=== PATIENT | female | born 1955 | race Caucasian/White ===

== ENCOUNTER 2018-09-07 00:02 | Outpatient (CLI) | payer BC, SELFPAY ==
--- NOTE | 2018-09-07 08:15 | ETT_ITS ---
*[facility]* *[facility]* [address] [place] [address] Stress Electrocardiography Leander protocol Date of study: 09/07/2018 *PATIENT PRESENTATION* Height: 167.6cm (66in) Blood Pressure: Weight: 59.1kg (130lb) BSA: 1.66m^2 Referring physician: Enedelia Dyer Ordering physician: Enedelia Dyer Impressions: Normal study after maximal exercise. Summary: 1. Stress ECG conclusions: The stress ECG is negative. Avina treadmill score: 8. This score predicts a low risk of cardiac events. 2. Stress: The target heart rate was achieved. The heart rate response to stress is exaggerated. There is a normal resting blood pressure with an appropriate response to stress. The patient experienced no chest pain during stress. Exercise capacity is above normal for age. 3. Treadmill exercise testing was performed using the Leander protocol. The patient exercised for 8 min, to protocol stage 3, to a maximal work rate of 10.2mets. Exercise was terminated due to fatigue. Indication: R07.89, Appropriate Use Criteria: A (Appropriate). History: REASON FOR VISIT: CHEST PAIN. PT REPORTS WHILE SITTING AT HER DESK AT WORK SHE HAD A STEADY ACHE IN HER CENTER OF HER CHEST/EPIGASTRIC REGION. SHE DESCRIBES LIKE AN UNCOMFORTABLE BALL OVER HER EPIGASTRIC REGION. THIS LASTED ABOUT 10-15 MINUTES AND SUBSIDED WITHOUT INTERVENTION. THERE WAS NO ASSOCIATED SOB OR NAUSEA. PT'S BROTHER AT AGE 53 OF AN ENLARGED HEART AND HER FATHER OF A MYOCARDIAL INFARCTION IN HIS 70'S. PMH: Asthma. Risk factors: FORMER SMOKER ONE PACK PER DAY FOR 30 YEARS. QUIT IN 2004. Family history of coronary artery disease. ALLERGIES: CODEINE. OXYCODONE. MEDICATIONS: SEROQUEL 50 MG Q HS. MVI DAILY. MESALAMINE 1,000 MG AR HS PRN. MESALAMINE 1.2 GM TAB DAILY. BUPROPION HCL 150 MG DAILY. BUPROPION HCL 300 MG DAILY. Protocol: Leander protocol. Baseline ECG: SINUS RHYTHM. HR 85 BPM. Normal ECG. Stress protocol: + +---+ + !Stage !HR !BP (mmHg) ! + +---+ + !Baseline supine !85 !120/70 (87) ! + +---+ + !Baseline standing !95 !120/68 (85) ! + +---+ + !Stage I; 1.7mph, 10degrees; 3 min !130!126/80 (95) ! + +---+ + !Stage II; 2.5mph, 12degrees; 3 min !150!138/82 (101)! + +---+ + !Stage III; 3.4mph, 14degrees; 3 min!164! ! + +---+ + !Peak stress !167! ! + +---+ + !Recovery; 1 min !150!150/60 (90) ! + +---+ + !Recovery; 3 min !121!150/58 (89) ! + +---+ + !Recovery; 6 min !110!120/60 (80) ! + +---+ + !Recovery; 9 min !108!118/58 (78) ! + +---+ + * Stress results: Maximal heart rate during stress was 167bpm (106% of maximal predicted heart rate). The maximal predicted heart rate was 157bpm. The target heart rate was achieved. The heart rate response to stress is exaggerated. There is a normal resting blood pressure with an appropriate response to stress. The rate-pressure product for the peak heart rate and blood pressure was 73857dq Hg/min. The patient experienced no chest pain during stress. Exercise capacity is above normal for age. Stress ECG: TREADMILL PORTION OF STRESS TEST ENDED IN 8 MINUTES & 1 SECOND DUE TO FATIGUE. NORMAL HEART RATE AND BLOOD PRESSURE RESPONSE TO EXERCISE. MAX HR = 167 % OF TARGET= 106 NO ECTOPY APPROXIMATE METS ACHIEVED = 10.16 NO ANGINA NO SIGNIFICANT ST SEGMENT CHANGES ABOVE AVERAGE FUNCTIONAL CAPACITY FOR EXERCISE The stress ECG is negative. Avina treadmill score: 8. This score predicts a low risk of cardiac events. Study data: Stuart Woodward MD supervised and was readily available during the procedure. This study was interpreted by [facility]. Study status: Routine. Consent: The risks, benefits, and alternatives to the procedure were explained to the patient and informed consent was obtained. Procedure: Initial setup. A baseline ECG was recorded. Surface ECG leads and manual cuff blood pressure measurements were monitored. Heart sounds: Normal. Lung sounds: Normal. Treadmill exercise testing was performed using the Leander protocol. The patient exercised for 8 min, to protocol stage 3, to a maximal work rate of 10.2mets. Exercise was terminated due to fatigue. Study completion: The patient tolerated the procedure well and was discharged from the lab. Discharge: The patient left the laboratory in stable condition. Birthdate: Patient birthdate: 1955. Sex: Gender: female. Study date: Study date: 09/07/2018. Study time: 00:01 AM. Signature Documentation: The Stress ECG portion of this study was interpreted by Stuart Woodward MD. Electronically signed by Stuart Woodward 09/07/2018 09:49
== END 2018-09-07 00:22 ==
PROVIDERS: PCP Nurse Practitioner Family; Visit Provider Nurse Practitioner Family
DX: R07.89 Other chest pain (principal); Z87.891 Personal history of nicotine dependence; Z82.49 Family history of ischemic heart disease and other diseases of the circulatory system
CPT/HCPCS: 93017

== ENCOUNTER 2018-09-20 07:43 | Outpatient (CLI) | payer BC, SELFPAY ==
[2018-09-20 07:57] LABS: Abs Immature Grans 0.01 k/cumm (0.0-0.09); Absolute Basophil Count 0.01 k/cumm (0.0-0.2); Absolute Eosinophil Count 0.09 k/cumm (0.0-0.7); Absolute Monocyte Count 0.56 k/cumm (0.11-0.7); Absolute Neutrophil Count 7.82 k/cumm (1.2-6.7); Basophils % 0.1; Eosinophils % 0.9; HCT 41.9 % (36.0-46.0); Immature Grans % 0.1; Lymphocytes % 12.4; Mean Corp. HGB Concentration 33.4 g/dL (32.0-36.0); Mean Corpuscular Hemoglobin 31.6 pg (27.0-33.0); Mean Corpuscular Volume 94.6 fL (80-95); Monocytes % 5.8; Neutrophils % 80.7; Platelet Count 256 x1000/uL (130-400); RBC 4.43 m/cumm (4.00-5.20); RBC Distribution Width 13.2 % (11.7-14.6); White Blood Cell Count 9.69 k/cumm (4.4-10.8)
[2018-09-20 08:08] LABS: Hemoglobin A1C 5.7 % (4.5-6.2)
[2018-09-20 09:12] LABS: ALT 27 U/L (12-78); AST 19 U/L (15-37); Albumin 4.2 g/dL (3.4-5.0); Alkaline Phosphatase 123 U/L (46-116); Anion Gap 11.6 mmol/L (3-11); BUN 21 mg/dL (7-18); Bilirubin, Total 0.7 mg/dL (0.2-1.0); CO2 24.4 mmol/L (21.0-32.0); CREATININE 0.66 mg/dL (0.55-1.02); Chloride 104 mmol/L (98-107); Glucose 108 mg/dL (70-100); Potassium 4.4 mmol/L (3.5-5.1); Sodium 140 mmol/L (136-145); Total Protein 6.9 g/dL (6.4-8.2)
== END 2018-09-20 08:03 ==
PROVIDERS: PCP Nurse Practitioner Family; Visit Provider Nurse Practitioner Family
DX: R73.01 Impaired fasting glucose (principal); K50.90 Crohn's disease, unspecified, without complications; Z13.1 Encounter for screening for diabetes mellitus; D50.9 Iron deficiency anemia, unspecified
CPT/HCPCS: 36415; 80053; 83036; 85025

== ENCOUNTER 2018-10-25 01:08 | Outpatient (CLI) | payer BC, SELFPAY ==
--- NOTE | 2018-10-25 16:20 | DI.MAMMO_ITS ---
SYMPTOM/DIAGNOSIS: SCREENING,z12.31 MAMMOGRAMS: Mammograms were interpreted according to the usual protocol including computer analysis with CAD system, tomosynthesis and C view imaging. Comparison is made with prior examinations. Breast density, Category C. No suspicious masses or microcalcifications are seen. There is no definite evidence of malignancy. IMPRESSION: Negative mammogram. Routine screening is recommended. Category 1. MQSA ASSESSMENT OF FINDINGS: Negative. Category 1. Patient will receive a letter notifying them of these results. Bi-RADS category C. The breasts are heterogeneously dense, which may obscure small masses.
== END 2018-10-25 01:28 ==
PROVIDERS: PCP Nurse Practitioner Family; Visit Provider Nurse Practitioner Family
DX: Z12.31 Encounter for screening mammogram for malignant neoplasm of breast (principal)
CPT/HCPCS: 77063; 77067

== ENCOUNTER 2019-10-26 04:31 | Outpatient (CLI) | payer BC, SELFPAY ==
[2019-10-26 17:40] LABS: Ferritin 70 ng/mL (8-252)
== END 2019-10-26 04:51 ==
PROVIDERS: PCP Nurse Practitioner Family; Visit Provider Nurse Practitioner
DX: M25.50 Pain in unspecified joint (principal)
CPT/HCPCS: 36415; 82728

== ENCOUNTER 2019-11-10 08:08 | Outpatient (CLI) | payer BC, SELFPAY ==
[2019-11-13 17:41] LABS: Patient Race White; SARS-CoV-2 RNA Undetected (Undetected); SARS-CoV-2 Specimen Source Nasopharynx
== END 2019-11-10 08:28 ==
PROVIDERS: PCP Nurse Practitioner Family; Visit Provider Nurse Practitioner Family
DX: Z11.59 Encounter for screening for other viral diseases (principal)
CPT/HCPCS: U0003

== ENCOUNTER 2020-04-09 21:59 | Outpatient (REF) | payer BC, SELFPAY ==
[2020-04-11 14:35] LABS: COVID-19 RT-PCR UVMMC Result Negative (Negative)
== END 2020-04-09 22:00 | disposition home or self-care (01) ==
LOC: LBN 21:59
PROVIDERS: PCP Nurse Practitioner Family; Visit Provider Nurse Practitioner
DX: Z20.822 Contact with and (suspected) exposure to COVID-19 (principal)
CPT/HCPCS: U0003

== ENCOUNTER 2020-05-20 10:39 | Outpatient (REF) | payer BC, SELFPAY ==
--- NOTE | 2020-05-20 08:55 | PAPFT_PTH ---
PATIENT: Tiffani Huang LOC: [facility] U#:[id number] AGE/SX: 65/F ROOM: RE05/20/[address]: Enedelia Dyer APRN : 1955 BED: DIS: 05/20/2020 SPEC #: [id number] RECD: 05/20/20 12:59 STATUS: BOLIVAR RECaro #: [id number] KIMBERLY: 05/20/20 08:[address]: Enedelia Dyer DEPT: [facility] Cytology RECD BY: Dasha Walker Tissues: 1 - CX/ENDOCX FOR PAP SMEARS Procedures: PAP THIN PREP/[facility] Screening HPV DNA PROBE Comments: [id number]
== END 2020-05-20 10:40 | disposition home or self-care (01) ==
LOC: LBN 10:39
PROVIDERS: PCP Nurse Practitioner Family; Visit Provider Nurse Practitioner Family
DX: Z12.4 Encounter for screening for malignant neoplasm of cervix (principal); Z11.51 Encounter for screening for human papillomavirus (HPV)
CPT/HCPCS: 88142; 87624

== ENCOUNTER 2020-05-30 03:22 | Outpatient (CLI) | payer BC, SELFPAY ==
[2020-05-30 16:43] LABS: Abs Immature Grans 0.02 10^3/uL (0.0-0.06); Absolute Basophil Count 0.01 10^3/uL (0.0-0.2); Absolute Eosinophil Count 0.48 10^3/uL (0.0-0.7); Absolute Lymphocyte Count 1.68 10^3/uL (1.2-3.4); Absolute Monocyte Count 0.81 10^3/uL (0.1-0.8); Absolute Neutrophil Count 4.12 10^3/uL (1.2-6.7); Basophils % 0.1; Eosinophils % 6.7; HCT 42.3 % (36.0-46.0); HGB 13.9 g/dL (11.2-15.7); Immature Grans % 0.3; Lymphocytes % 23.6; MCH 31.1 pg (27.0-33.0); MCHC 32.9 % (32.0-36.0); MCV 94.6 fL (80-95); MPV 9.2 fL (8.0-11.0); Monocytes % 11.4; Neutrophils % 57.9; Nucleated RBC 0 %; Platelet Count 259 10^3/uL (130-400); RBC 4.47 10^6/uL (3.93-5.22); RDW 12.6 % (11.7-14.6); RDW-SD 43.7 fL; WBC 7.12 10^3/uL (4.4-10.8)
[2020-05-30 17:07] LABS: Hemoglobin A1C 6.3 % (<5.7)
[2020-05-30 17:27] LABS: ALT 29 U/L (14-59); AST 19 U/L (15-37); Albumin 3.9 g/dL (3.4-5.0); Alkaline Phosphatase 139 U/L (46-116); Anion Gap 11.4 mmol/L (3-11); BUN 28 mg/dL (7-18); Bilirubin, Total 0.3 mg/dL (0.2-1.0); CO2 27.6 mmol/L (21.0-32.0); CREATININE 0.8 mg/dL (0.55-1.02); Chloride 102 mmol/L (98-107); Glucose 133 mg/dL (74-106); Potassium 4.3 mmol/L (3.5-5.1); Sodium 141 mmol/L (136-145); Total Protein 7.5 g/dL (6.4-8.2)
== END 2020-05-30 03:23 | disposition home or self-care (01) ==
LOC: LBO 03:22
PROVIDERS: PCP Nurse Practitioner Family; Visit Provider Nurse Practitioner Family
DX: D50.9 Iron deficiency anemia, unspecified (principal); R73.01 Impaired fasting glucose; K50.90 Crohn's disease, unspecified, without complications
CPT/HCPCS: 36415; 80053; 83036; 85025